=== PATIENT | female | born 1945 | race Caucasian/White ===

== ENCOUNTER 2017-12-23 14:40 | Outpatient (CLI) | payer OTHER | END 2017-12-23 14:41 | disposition home or self-care (01) | LOC: BICMRI 14:40 | PROVIDERS: ATTEND Anesthesiology Pain Medicine | DX: M51.36 Other intervertebral disc degeneration, lumbar region (principal); M51.37 Other intervertebral disc degeneration, lumbosacral region; M43.17 Spondylolisthesis, lumbosacral region; M43.16 Spondylolisthesis, lumbar region; M41.9 Scoliosis, unspecified; M99.83 Other biomechanical lesions of lumbar region | CPT/HCPCS: 72148 ==

== ENCOUNTER 2018-11-03 12:18 | Outpatient (CLI) | payer MEDICARE | END 2018-11-03 12:19 | disposition home or self-care (01) | LOC: BICMAMMO 12:18 | PROVIDERS: ATTEND Obstetrics & Gynecology | DX: Z12.31 Encounter for screening mammogram for malignant neoplasm of breast (principal) | CPT/HCPCS: 77063; 77067 ==

== ENCOUNTER 2019-02-10 12:04 | Outpatient (CLI) | payer OTHER ==
--- NOTE | 2019-02-10 14:43 | RAD ---
RADIOGRAPH SCOLIOSIS STUDY THREE VIEWS: 02/10/2019 HISTORY: A 73-year-old female with scoliosis. TECHNIQUE: Three AP views of the thoracic and lumbar spine. FINDINGS: There is no scoliosis of the thoracic spine. No thoracic vertebral anomalies are visualized, superio r to the level of hardware. There are 12 rib-bearing thoracic-type vertebrae. There are bilateral pedicle screws with vertical interlocking rods at L2, L1, T11, and T10. There are laminectomy defect s at T12 and L1. There is levoscoliosis with apex of curvature at L3. The degree of levoscoliosis i s 30 (measured from the superior endplate of T10 to the inferior endplate of L4. Although it woul d be ideal to measure the upper level at a level inferior to T10, the presence of hardware obscures t he levels inferior to it). Asymmetrically severe right-sided degenerative disk disease along the con cave side of the curvature, at L3-L4. Chronic grade 1 left lateral subluxation of L3 on L4. Asymmet rically severe left-sided degenerative disk disease and facet DJD at L5-S1, along the concavity of th e counter-curvature. There is no scoliosis of the thoracic spine. There is vertebroplasty cement wi thin a collapsed T12 vertebral body. There are laminectomy defects at T12 and L1. IMPRESSION: 1. A 30 levoscoliosis of the lumbar spine. 2. Treatment and stabilization of T12 burst fracture with vertebroplasty, laminectomy, and pedicle s crews at levels superior and inferior to it. 3. Severe lumbar spondylosis associated with the scoliosis. POS: [facility]
== END 2019-02-10 12:05 | disposition home or self-care (01) ==
LOC: BICRAD 12:04
PROVIDERS: ATTEND Anesthesiology Pain Medicine
DX: M41.9 Scoliosis, unspecified (principal); M47.816 Spondylosis without myelopathy or radiculopathy, lumbar region; S22.081D Stable burst fracture of T11-T12 vertebra, subsequent encounter for fracture with routine healing; Z98.890 Other specified postprocedural states
CPT/HCPCS: 72081

== ENCOUNTER 2020-02-16 12:47 | Outpatient (CLI) | payer MEDICARE ==
--- NOTE | 2020-02-16 13:38 | BD ---
BONE DENSITOMETRY USING DEXA: HISTORY: Age-related osteoporosis with current pathological fracture. FINDINGS: BMD (g/cm2) RIGHT: Femoral Neck: 0.668 T-Score: -1.6 Z-Score: 0.5 Total Femur: 0.698 T-Score: -2.0 Z-Score: -0.1 LEFT: Femoral Neck: 0.635 T-Score: -1.9 Z-Score: 0.2 Total Femur: 0.697 T-Score: -2.0 Z-Score: -0.2 There has been interval improvement of 0.6% in the BMD of the proximal femur and an improvement of 8. 9% of the BMD of the left femur since 10/07/2013. Impression: Osteopenia. POS: [facility]
--- NOTE | 2020-02-16 14:41 | MRI ---
MR CERVICAL SPINE WITHOUT CONTRAST INDICATION: 74-year-old female with cervical radiculopathy TECHNIQUE: Multiplanar multisequence MR images were obtained of the cervical spine without contrast. COMPARISON: MR of the cervical spine dated 03/09/2009 FINDINGS: Posterior fossa: Within normal limits. Bone marrow signal intensity: Normal Spinal alignment: Normal. Craniocervical junction: Normal appearing. Prevertebral and perivertebral soft tissues: Visualized soft tissues appear within normal limits. Vertebral levels: C2-C3: There is a mild broad-based disc bulge but no appreciable central canal or neural foraminal na rrowing. C3-4: There is a broad-based disc bulge at C3-C4 causing [id number]-ljnlcsxe central canal narrowing wit h mild ventral effacement of spinal cord. This is progressed from the prior exam. There is uncovertebral hypertrophy and facet joint degenerative change inducing moderate right neural foramina l narrowing which is also worsened from the prior exam. C4-5: There is a broad-based disc bulge with uncovertebral hypertrophy and facet joint degenerative change inducing severe right and moderate to severe left neural foraminal narrowing. This is progressed from the prior exam. There is a broad-based disc bulge is evident induces moderate to humberto re central canal narrowing which is progressed from the prior exam inducing mild to moderate ventral effacement spinal cord. At C5-6, there is a broad-based bulge with uncovertebral hypertrophy facet joint change inducing mode rate to severe right and severe left neural foraminal narrowing. There is mild to moderate central canal narrowing mild ventral effacement of the spinal cord. Findings are stable to the comparison exa m. C6-C7:, There is a broad-based disc osteophyte complex with facet joint degenerative change inducing mild central canal narrowing at is stable to the prior exam. There is uncovertebral hypertrophy greater on the left inducing stable severe left neural foraminal narrowing. There is mild uncovertebr al hypertrophy on the right inducing mild right neural foraminal narrowing which is mildly progressed from prior exam. C7-T1: There is a broad-based disc bulge inducing mild left neural foraminal narrowing which is new f rom the prior exam. IMPRESSION: 1. Worsening rnny-hi-cfbjrjfd central canal narrowing at C3-4 with worsening moderate right neural fo raminal narrowing. 2. Worsening moderate to severe central canal narrowing with [id number] residual the spinal cor d at C4-5. Worsening severe right and moderate to severe left neural foraminal narrowing at C4-5. 3. Stable moderate to severe right and severe left neural foraminal narrowing at C5-6 with stable mil [id number]-sg-euzjwitx central canal narrowing. 4. Stable severe left neural foraminal narrowing at C6-7 with stable mild central canal narrowing. Sl ightly worsening mild right neural foraminal narrowing at C6-7. 5. Worsening mild left neural foraminal narrowing at C7-T1.
--- NOTE | 2020-02-17 08:52 | MMO ---
Bilateral MAMMO Bilat Screen [facility]. CLINICAL HISTORY: Patient is 74 years old and is seen for screening. The patient has no family history of breast cancer. The patient has no personal history of cancer. VIEWS: The views performed were: bilateral craniocaudal with tomosynthesis and bilateral mediolateral oblique with tomosynthesis. FILMS COMPARED: The present examination has been compared to prior imaging studies performed at [facility] on 10/31/2017 and 11/03/2018, and at [facility] on 10/07/2015 and 10/16/2016. This study has been interpreted with the assistance of computer-aided detection. MAMMOGRAM FINDINGS: The breasts are heterogeneously dense, which could obscure a lesion on mammography. Benign calcifications are noted bilaterally. There are no suspicious masses, suspicious calcifications, or new areas of architectural distortion. IMPRESSION: THERE IS NO MAMMOGRAPHIC EVIDENCE OF MALIGNANCY. A ROUTINE FOLLOW-UP MAMMOGRAM IN 1 YEAR IS RECOMMENDED. THE RESULTS OF THIS EXAM WERE SENT TO THE PATIENT. ACR BI-RADS Category 2 - Benign finding MAMMOGRAPHY NOTE: 1. A negative mammogram report should not delay a biopsy if a dominant of clinically suspicious mass is present. 2. Approximately 10% to 15% of breast cancers are not detected by mammography. 3. Adenosis and dense breasts may obscure an underlying neoplasm. Reported by: ALFRED COLUNGA MD Electonically Signed: [id number]
== END 2020-02-16 12:48 | disposition home or self-care (01) ==
LOC: BICMRI 12:47
PROVIDERS: ATTEND Obstetrics & Gynecology
DX: Z12.31 Encounter for screening mammogram for malignant neoplasm of breast (principal); M80.00XA Age-related osteoporosis with current pathological fracture, unspecified site, initial encounter for fracture; M54.12 Radiculopathy, cervical region; M48.02 Spinal stenosis, cervical region; M48.03 Spinal stenosis, cervicothoracic region; M85.852 Other specified disorders of bone density and structure, left thigh; M85.851 Other specified disorders of bone density and structure, right thigh
CPT/HCPCS: 72141; 77063; 77067; 77080

== ENCOUNTER 2020-05-02 13:54 | Outpatient (CLI) | payer MEDICARE ==
--- NOTE | 2020-05-02 14:27 | ULT ---
BILATERAL CAROTID DUPLEX ULTRASOUND: HISTORY: TIA TECHNIQUE: Grayscale, color-flow and spectral Doppler ultrasound imaging of the extracranial carotid artery syst ems was performed bilaterally. FINDINGS: Minimal calcified atherosclerotic plaque is seen at the carotid artery bifurcations bilaterally. There is no hemodynamically significant stenosis in the bilateral internal carotid arteries according to the peak systolic velocities and the ICA/CCA ratios. The peak systolic velocity in the right ICA measures 82.6 cm/s. The peak systolic velocity in the left ICA measures 80.9 cm/s. The right IC A/CCA ratio is 0.71, and the left ICA/CCA ratio is 1.27. Vertebral arteries: Antegrade flow is demonstrated in the vertebral arteries bilaterally. IMPRESSION: No hemodynamically significant stenosis in the bilateral internal carotid arteries.
--- NOTE | 2020-05-02 15:32 | MRI ---
MRI BRAIN WITHOUT CONTRAST: INDICATION: TIA. COMPARISON: No comparison. FINDINGS: Ventricles have normal size and position. Moderately severe chronic ischemic white matter changes ar e seen in both cerebral hemispheres. On diffusion weighted images, there is a focus of increased sig nal in the left thalamus; however, this focus does show increased T2 and FLAIR signal. I do not conf irm signal loss at this location on the ADC map, and, therefore, this probably represents T2 shine-th rough. The focal gliosis at this location on FLAIR sequence would be consistent with a remote lacuna r infarct at this location. No evidence of acute infarct. No evidence of mass or edema. 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 The intracranial internal carotid arteries, cerebral arteries, and basilar arteries demonstrate expec ele flow voids. Paranasal sinuses and mastoids appear clear. IMPRESSION: Moderate to severe chronic ischemic white matter changes seen in both cerebral hemispheres. 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 POS: [facility]
== END 2020-05-02 13:55 | disposition home or self-care (01) ==
LOC: SCSRAD 13:54
PROVIDERS: ATTEND Psychiatry & Neurology Neurology
DX: G45.9 Transient cerebral ischemic attack, unspecified (principal)
CPT/HCPCS: 70551; 93880

== ENCOUNTER 2022-08-22 09:38 | Outpatient (CLI) | payer MEDICARE | END 2022-08-22 09:39 | disposition home or self-care (01) | LOC: BICMAMMO 09:38 | PROVIDERS: ATTEND Obstetrics & Gynecology | DX: Z12.31 Encounter for screening mammogram for malignant neoplasm of breast (principal); M81.0 Age-related osteoporosis without current pathological fracture; M85.851 Other specified disorders of bone density and structure, right thigh; M85.852 Other specified disorders of bone density and structure, left thigh | CPT/HCPCS: 77063; 77067; 77080 ==

== ENCOUNTER 2022-10-10 13:12 | Outpatient (CLI) | payer MEDICARE | END 2022-10-10 13:13 | disposition home or self-care (01) | LOC: BICRAD 13:12 | PROVIDERS: ATTEND Urology | DX: N20.0 Calculus of kidney (principal); M41.9 Scoliosis, unspecified; M51.36 Other intervertebral disc degeneration, lumbar region; M51.37 Other intervertebral disc degeneration, lumbosacral region; M47.816 Spondylosis without myelopathy or radiculopathy, lumbar region; M47.817 Spondylosis without myelopathy or radiculopathy, lumbosacral region; Z98.890 Other specified postprocedural states | CPT/HCPCS: 74018 ==

== ENCOUNTER 2025-09-14 12:52 | Outpatient (CLI) | payer MEDICARE | END 2025-09-14 12:53 | disposition home or self-care (01) | LOC: BICMAMMO 12:52 | PROVIDERS: ATTEND Internal Medicine Hematology & Oncology | DX: Z12.31 Encounter for screening mammogram for malignant neoplasm of breast (principal); M81.8 Other osteoporosis without current pathological fracture; E61.1 Iron deficiency; M85.851 Other specified disorders of bone density and structure, right thigh; M85.852 Other specified disorders of bone density and structure, left thigh | CPT/HCPCS: 77063; 77067; 77080 ==